=== PATIENT | male | born 1975 | race Two or more races ===

== ENCOUNTER 2024-01-11 08:00 | Outpatient (CLI) | payer OTHER ==
[~2024-01-11] VITALS: Ht 175.3 cm; Wt 115.2 kg
[2024-01-11 08:52] LABS: HEMATOCRIT 43.2 % (39.0-48.0); HEMOGLOBIN 14.6 g/dL (13-16.00); MEAN CELL VOLUME 82.9 fL (80.0-100.00); MEAN CORPUSCULAR HEMOGLOBIN 28.1 pg (27.00-32.0); MEAN CORPUSCULAR HGB CONC 33.9 g/dl (32.0-36.0); PLATELET COUNT 283 K/uL (150-450); RED BLOOD COUNT 5.21 M/uL (4.00-6.00); RED CELL DISTRIBUTION WIDTH 14.6 % (11.5-14.5)
[2024-01-11 08:54] LABS: URINE APPEARANCE Clear; URINE BILIRRUBIN Negative (NEGATIVE); URINE BLOOD Negative; URINE COLOR Yellow; URINE GLUCOSE Negative (NEGATIVE); URINE KETONE Negative (NEGATIVE); URINE LEUKOCYTE Negative; URINE NITRATE Negative; URINE PROTEIN Negative (NEGATIVE); URINE UROBILINOGEN 0.2 E.U./dl
[2024-01-11 08:59] LABS: URINE WBC 2.1 uL (0.0-23.2)
[2024-01-11] MEDS ORDERED: METFORMIN HCL1000 M2 PO (09:01)
[2024-01-11] MEDS ORDERED: LOVAZA1 GM PO (09:01)
[2024-01-11] MEDS ORDERED: NORVASC5 MG PO (09:02)
[2024-01-11] MEDS ORDERED: LOSARTAN-HCTZ1 EAC2 PO (09:02)
[2024-01-11] MEDS ORDERED: FENOFIBRIC ACI105 MG PO (09:02)
[2024-01-11] MEDS ORDERED: GLIPIZIDE XL5 MG PO (09:02)
[2024-01-11] MEDS ORDERED: BUPROPION HCL75 MG PO (09:03)
[2024-01-11] MEDS ORDERED: BUPROPION XL450 MG PO (09:03)
[2024-01-11 09:04] VITALS: BP 130/80
[2024-01-11 09:10] LABS: URINE CAST 0.15 uL (0.0-1.40); URINE EPITHELIAL CELLS 0.9 uL (0.0-38.8); URINE RBC 1.2 uL (0.0-20.8)
[2024-01-11 09:20] LABS: INR 1.03; PARTIAL THROMBOPLASTIN TIME 27.9 SECONDS (22.0-34.0); PROTHROMBIN TIME 10.8 SECONDS (9.0-11.5)
[2024-01-11 09:30] LABS: ALBUMIN 4.2 gm/dL (3.4-5.0); BILIRUBIN TOTAL 0.42 mg/dL (0.3-1.2); CALCIUM 9.1 mg/dL (8.5-10.1); CREATININE SERUM 1.05 mg/dL (0.70-1.30); GFR 75.71; POTASSIUM 4.36 mEq/L (3.5-5.1); TOTAL PROTEIN 7.2 gm/dL (6.4-8.2)
== END 2024-01-11 08:01 | disposition home or self-care (01) ==
LOC: RAD 08:00 → CIR.AMB 01-14 07:45 → EDSTATUS 01-14 07:45
PROVIDERS: ATTEND Surgery
DX: R22.2 Localized swelling, mass and lump, trunk (principal)

== ENCOUNTER 2024-03-06 12:09 | Outpatient (CLI) | payer OTHER ==
[~2024-03-06 12:09] MED LIST: BUPROPION HCL75 MG PO; BUPROPION XL450 MG PO; FENOFIBRIC ACI105 MG PO; GLIPIZIDE XL5 MG PO; LOSARTAN-HCTZ1 EAC2 PO; LOVAZA1 GM PO; METFORMIN HCL1000 M2 PO; NORVASC5 MG PO
== END 2024-03-06 15:29 | disposition home or self-care (01) ==
LOC: RAD 12:09
DX: E66.01 Morbid (severe) obesity due to excess calories (principal); Z98.84 Bariatric surgery status

== ENCOUNTER 2024-03-31 06:29 | Outpatient (CLI) | payer OTHER ==
[2024-03-31 07:22] LABS: HEMATOCRIT 46.3 % (39.0-48.0); HEMOGLOBIN 15.8 g/dL (13-16.00); MEAN CELL VOLUME 84.4 fL (80.0-100.00); MEAN CORPUSCULAR HEMOGLOBIN 28.8 pg (27.00-32.0); MEAN CORPUSCULAR HGB CONC 34.1 g/dl (32.0-36.0); PLATELET COUNT 307 K/uL (150-450); RED BLOOD COUNT 5.49 M/uL (4.00-6.00); RED CELL DISTRIBUTION WIDTH 13.8 % (11.5-14.5)
[2024-03-31 07:25] LABS: URINE APPEARANCE Clear; URINE BILIRRUBIN Negative (NEGATIVE); URINE BLOOD Negative; URINE COLOR Yellow; URINE KETONE Negative (NEGATIVE); URINE LEUKOCYTE Negative; URINE NITRATE Negative; URINE PROTEIN Negative (NEGATIVE); URINE UROBILINOGEN 0.2 E.U./dl
[2024-03-31 07:28] LABS: URINE WBC 12.3 uL (0.0-23.2)
[2024-03-31 07:31] LABS: URINE BACTERIA 2.5 uL (0.0-1933); URINE EPITHELIAL CELLS 1.2 uL (0.0-38.8); URINE GLUCOSE 500 MG/DL (NEGATIVE); URINE RBC 0.6 uL (0.0-20.8)
[2024-03-31 08:50] LABS: ALBUMIN 4.4 gm/dL (3.4-5.0); BILIRUBIN TOTAL 0.4 mg/dL (0.3-1.2); CALCIUM 9.3 mg/dL (8.5-10.1); CHOL HDL RATIO 3.3 (0-5.0); CREATININE SERUM 1.13 mg/dL (0.70-1.30); GFR 69.56; GLOBULINA 3.1 G/DL (2.4-3.5); PHOSPHOROUS 4.4 mg/dL (2.5-4.9); POTASSIUM 3.74 mEq/L (3.5-5.1); T4 TOTAL 6.87 UG/DL (4.5-12.1); TOTAL PROTEIN 7.5 gm/dL (6.4-8.2)
[2024-03-31 08:51] LABS: PROSTATIC SPECIFIC ANTIGEN 6.61 NG/ML (0.010-4.00)
[2024-04-01 13:45] LABS: ob NEGATIVE (NEGATIVE)
== END 2024-03-31 06:30 | disposition home or self-care (01) ==
LOC: LAB 06:29
PROVIDERS: ATTEND Internal Medicine
DX: I10 Essential (primary) hypertension (principal); Z01.810 Encounter for preprocedural cardiovascular examination; E55.9 Vitamin D deficiency, unspecified; E11.51 Type 2 diabetes mellitus with diabetic peripheral angiopathy without gangrene; E11.9 Type 2 diabetes mellitus without complications; G62.9 Polyneuropathy, unspecified; Z12.11 Encounter for screening for malignant neoplasm of colon; Z79.84 Long term (current) use of oral hypoglycemic drugs; Z79.4 Long term (current) use of insulin

== ENCOUNTER 2024-05-09 14:08 | Outpatient (CLI) | payer OTHER | END 2024-05-09 14:27 | disposition home or self-care (01) | LOC: RAD 14:08 | PROVIDERS: ATTEND General Practice | DX: M25.531 Pain in right wrist (principal); M79.641 Pain in right hand ==

== ENCOUNTER 2024-07-24 09:48 | Emergency (ER) | payer OTHER ==
[~2024-07-24] VITALS: Ht 172.7 cm; Wt 116.1 kg
[2024-07-24] MEDS ORDERED: IPRATROPIUM BROMIDE 0.5 MG/2.5 ML AMPUL.NEB IH ONE (10:45)
[2024-07-24] MEDS ORDERED: METHYLPREDNISOLONE SOD SUCC 40 MG VIAL IM ONE (10:45)
[2024-07-24] MEDS ORDERED: LEVALBUTEROL HCL 1.25 MG/3 ML SOLUTION IH ONE ×2 (10:45→12:26)
[2024-07-24] MEDS ORDERED: BENZONATATE 200 MG CAPSULE PO ONE (10:45)
[2024-07-24] MEDS ORDERED: MONTELUKAST SODIUM 10 MG TABLET PO ONE (10:45)
[2024-07-24] MEDS ORDERED: METHYLPREDNISOLONE SOD SUCC 40 MG VIAL ONE (11:43)
[2024-07-24 12:04] LABS: HEMATOCRIT 44.5 % (39.0-48.0); MEAN CELL VOLUME 86.4 fL (80.0-100.00); MEAN CORPUSCULAR HGB CONC 33.6 g/dl (32.0-36.0); PLATELET COUNT 296 K/uL (150-450); RED BLOOD COUNT 5.15 M/uL (4.00-6.00); RED CELL DISTRIBUTION WIDTH 13.6 % (11.5-14.5)
[2024-07-24] MEDS ORDERED: SINGULAIR10 MG PO (13:19)
[2024-07-24] MEDS ORDERED: LEVALBUTER0.63 MG/3 IH (13:19)
[2024-07-24] MEDS ORDERED: BENZONATATE200 M1 PO (13:19)
[2024-07-24] MEDS ORDERED: PEPCID AC20 MG PO (13:19)
[2024-07-24] MEDS ORDERED: ZITHROMAX500 MG PO (13:19)
== END 2024-07-24 14:20 | disposition home or self-care (01) ==
LOC: ER 09:50
PROVIDERS: General Practice
DX: R05.8 Other specified cough (principal); J00 Acute nasopharyngitis [common cold]; Z88.0 Allergy status to penicillin; J45.909 Unspecified asthma, uncomplicated; I10 Essential (primary) hypertension; G47.39 Other sleep apnea; Z20.822 Contact with and (suspected) exposure to COVID-19

== ENCOUNTER → 2024-08-01 | Outpatient (CLI) | payer OTHER ==
[~2024-08-01] MED LIST changes: +BENZONATATE200 M1 PO; +LEVALBUTER0.63 MG/3 IH; +PEPCID AC20 MG PO; +SINGULAIR10 MG PO; +ZITHROMAX500 MG PO
== END | disposition home or self-care (01) ==
LOC: PPH VACUNA
PROVIDERS: ATTEND Emergency Medicine Pediatric Emergency Medicine
DX: Z23 Encounter for immunization (principal)

== ENCOUNTER 2025-04-20 09:37 | Outpatient (CLI) | payer OTHER | END 2025-04-20 09:47 | disposition home or self-care (01) | LOC: PPH VACUNA 09:37 | PROVIDERS: ATTEND Emergency Medicine Pediatric Emergency Medicine | DX: Z23 Encounter for immunization (principal) ==

== ENCOUNTER 2025-05-28 12:49 | Emergency (ER) | payer OTHER ==
[~2025-05-28] VITALS: Ht 165.1 cm; Wt 113.4 kg
[2025-05-28] MEDS ORDERED: FAMOTIDINE/PF 20 MG/2 ML VIAL IV ONE (15:45)
[2025-05-28] MEDS ORDERED: KETOROLAC TROMETHAMINE 30 MG VIAL IV ONE (15:45)
[2025-05-28] MEDS ORDERED: 0.9 % SODIUM CHLORIDE 1,000 ML IV ONE (15:45)
[2025-05-28 16:21] LABS: BASO % 0.4 % (0.1-1.2); EOS # 0.03 (0.04-0.54); EOS % 0.3 % (0.7-7.0); LYMPH # 0.85 (1.18-3.74); LYMPH % 8.7 % (19.3-53.1); MEAN PLATELET VOLUME 9.90 fl (9.4-12.4); MONO # 0.65 (0.24-0.82); MONO % 6.7 % (4.7-12.5); NEUT # 8.17 (1.56-6.13); NEUT % 83.6 % (34.0-71.1); RED CELL DISTRIBUTION WIDTH 12.3 % (11.6-14.4)
[2025-05-28 16:30] LABS: URINE APPEARANCE Clear; URINE BILIRRUBIN Negative (NEGATIVE); URINE BLOOD Negative; URINE COLOR Yellow; URINE GLUCOSE Negative (NEGATIVE); URINE KETONE Negative (NEGATIVE); URINE LEUKOCYTE Negative; URINE NITRATE Negative; URINE PROTEIN Negative (NEGATIVE); URINE UROBILINOGEN 1.0 E.U./dl
[2025-05-28 16:34] LABS: URINE BACTERIA 4.8 uL (0.0-1933); URINE WBC 4.9 uL (0.0-23.2)
[2025-05-28 16:38] LABS: INR 1.03
[2025-05-28 16:38] LABS: URINE CAST 0.00 uL (0.0-1.40); URINE EPITHELIAL CELLS 1.3 uL (0.0-38.8); URINE RBC 1.1 uL (0.0-20.8)
[2025-05-28 16:42] LABS: ALT/SGPT 35.0 U/L (12-78); AST/SGOT 12.0 U/L (15-37); BILIRUBIN TOTAL 0.62 mg/dL (0.3-1.2); BUN CREA RATIO 20.0 (7.0-25.0); CREATININE SERUM 0.91 mg/dL (0.70-1.30); GFR 88.92; GLOBULINA 3.5 G/DL (2.4-3.5); GLUCOSE FASTING 182.0 mg/dL (65-100); OSMOLALITY SERUM 288.0 MOSM/KG (275-295)
[2025-05-28 16:47] LABS: COVID-19 AG NEGATIVE (NEGATIVE)
[2025-05-28] MEDS ORDERED: PEPCID AC20 MG PO (20:57)
[2025-05-28] MEDS ORDERED: INTESTINEX680 M1 PO (20:57)
== END 2025-05-28 21:25 ==
LOC: ER 12:50
PROVIDERS: General Practice
DX: R10.13 Epigastric pain (principal); Z20.822 Contact with and (suspected) exposure to COVID-19; E11.9 Type 2 diabetes mellitus without complications; Z79.84 Long term (current) use of oral hypoglycemic drugs; G47.39 Other sleep apnea; Z88.0 Allergy status to penicillin